=== PATIENT | female | born 1965 | race Caucasian/White ===

== ENCOUNTER 2018-01-25 18:25 | Emergency (ER) | payer BC ==
[~2018-01-25] VITALS: Ht 157.5 cm; Wt 89.3 kg
[~2018-01-25 18:25] MED LIST: FLUO20CA43 PO
[2018-01-25] MEDS ORDERED: methylPREDNISolone sod succ 125mg/2ml vial IV ONE (19:20)
[2018-01-25] MEDS ORDERED: iohexol 300mg/ml 100ml inj. ONE (19:28)
[2018-01-25 21:45] VITALS: BP 140/80
[2018-01-25] MEDS ORDERED: fentaNYL/PF 50MCG/1 ML 2ML syringe ONE (21:49)
[2018-01-25] MEDS ORDERED: MIDAZolam 5mg/5ml vial ONE ×2 (21:49→21:59)
[2018-01-25] MEDS ORDERED: LIDOcaine Viscous 15ml cup ONE (21:49)
[2018-01-25] MEDS ORDERED: diphenhydrAMINE 50 mg/ml inj ONE (22:01)
[2018-01-25 22:23] VITALS: BP 154/94
[2018-01-25 22:33] VITALS: BP 147/81
[2018-01-25 22:43] VITALS: BP 148/82
[2018-01-25 22:53] VITALS: BP 126/73
[2018-01-25 23:34] VITALS: BP 144/89
== END 2018-01-25 23:35 | disposition home or self-care (01) ==
LOC: ER 18:26
DX: T17.228A Food in pharynx causing other injury, initial encounter (principal); Z98.890 Other specified postprocedural states; Z79.899 Other long term (current) drug therapy; W45.8XXA Other foreign body or object entering through skin, initial encounter; Y93.89 Activity, other specified; Y92.89 Other specified places as the place of occurrence of the external cause; Y99.8 Other external cause status
CPT/HCPCS: 43213; 43247; 70491; 96374; 99285; J1200; J2250; J2930; J3010; J7030; Q9967; 99284; A4620; G0500

== ENCOUNTER 2020-03-04 11:16 | Inpatient (IN) | payer BC, OTHER ==
[2020-03-04] VITALS (10 sets, daily range): BP systolic 92–144; BP diastolic 42–116
[~2020-03-04] VITALS: Ht 157.5 cm; Wt 95.5 kg
--- NOTE | 2020-03-04 11:25 | NUR ---
been seeing dr tuttle about chest pressure
--- NOTE | 2020-03-04 11:26 | NUR ---
EKG 1118
[2020-03-04] MEDS ORDERED: aspirin 325mg tablet PO ONE (12:05)
[2020-03-04 12:09] LABS: BASOPHILS % (AUTO) 0.7 % (0-1); EOSINOPHILS # (AUTO) 0.1 X10'3 (0-0.9); EOSINOPHILS % (AUTO) 2.5 % (0-6); HEMATOCRIT 34.5 % (35.0-45.0); HEMOGLOBIN 11.8 g/dl (12.0-16.0); LYMPHOCYTES # (AUTO) 1.9 X10'3 (1.1-4.8); LYMPHOCYTES % (AUTO) 36.8 % (21-51); MEAN CORPUSCULAR HEMOGLOBIN 30.2 PG (27.0-31.0); MEAN CORPUSCULAR HGB CONC 34.1 g/dL (33.0-36.5); MEAN CORPUSCULAR VOLUME 88.7 FL (78-98); MEAN PLATELET VOLUME 7.7 FL (7.4-10.4); MONOCYTES # (AUTO) 0.3 X10'3 (0-0.9); MONOCYTES % (AUTO) 6.2 % (2-12); NEUTROPHILS # (AUTO) 2.8 X10'3 (1.8-7.7); NEUTROPHILS % (AUTO) 53.8 % (42-75); PLATELET COUNT 289 X10'3 (140-440); RED BLOOD COUNT 3.89 X10'6 (4.20-5.60); RED CELL DISTRIBUTION WIDTH 13.1 % (11.5-14.5); WHITE BLOOD COUNT 5.2 X10'3 (4.5-11.0)
[2020-03-04 12:20] LABS: ALANINE AMINOTRANSFERASE 38 U/L (12-78); ALBUMIN 3.8 G/DL (3.4-5.0); ALBUMIN/GLOBULIN RATIO 1.2 (1.1-1.5); ALKALINE PHOSPHATASE 65 IU/L (46-116); ANION GAP 10 (8-16); ASPARTATE AMINO TRANSFERASE 16 U/L (10-37); BILIRUBIN,TOTAL 0.3 MG/DL (0.1-1.0); BLOOD UREA NITROGEN 18 MG/DL (7-18); BUN/CREATININE RATIO 20.7 (6.6-38.0); CALCIUM 8.4 MG/DL (8.5-10.1); CHLORIDE 107 MMOL/L (99-107); CREATININE 0.87 MG/DL (0.40-0.90); GLUCOSE 92 MG/DL (70-104); POTASSIUM 3.7 MMOL/L (3.5-5.1); SODIUM 141 MMOL/L (135-145); TOTAL CARBON DIOXIDE 24.3 MMOL/L (24-32); TOTAL PROTEIN 6.9 G/DL (6.4-8.2); eGFR 68 ML/MIN
[2020-03-04] MEDS ORDERED: nitroGLYCERIN 0.4mg/hour patch TD ONE (13:15)
[2020-03-04 13:38] LABS: PARTIAL THROMBOPLASTIN TIME 29 SECONDS (22-32)
[2020-03-04] MEDS ORDERED: magnesium 4gm in 100ml NS 100 ML IV PRN (13:40)
[2020-03-04] MEDS ORDERED: morphine 2 MG/ML inj. syringe IV PRN (13:40)
[2020-03-04] MEDS ORDERED: HYDROcodone/acetaminophen 5mg/325mg tablet PO PRN ×2 (13:40→23:00)
[2020-03-04] MEDS ORDERED: acetaminophen 325mg tablet PO PRN (13:40)
[2020-03-04] MEDS ORDERED: magnesium hydroxide 30ml (MOM) UD suspension PO PRN (13:40)
[2020-03-04] MEDS ORDERED: mag hydrox/Alum hydrox/simeth 30ml oral suspension PO PRN (13:40)
[2020-03-04] MEDS ORDERED: potassium CL 10mEq/100ml bag 100 ML IV PRN ×2 (13:40)
[2020-03-04] MEDS ORDERED: magnesium Cl slow-release 64mg tablet PO PRN (13:40)
[2020-03-04] MEDS ORDERED: magnesium 2GM in 50ml NS 50 ML IV PRN (13:40)
[2020-03-04] MEDS ORDERED: ondansetron/PF 4mg/2ml inj IV PRN ×2 (13:40→23:00)
[2020-03-04] MEDS ORDERED: potassium Cl 20 mEq SR tablet PO PRN ×2 (13:40)
[2020-03-04] MEDS: normal saline 1000ml 1,000 ML IV SCH ×2 (13:51→23:36)
[2020-03-04] MEDS ORDERED: LORA-269 PO (14:07)
[2020-03-04 14:35] LABS: HEMOGLOBIN A1C 5.9 % (4.5-6.2)
--- NOTE | 2020-03-04 14:45 | NUR ---
REPORT RECEIVED FROM MYLES NORMAN IN THE ED
[2020-03-04] MEDS ORDERED: midazolam 2 mg/2 ml injection ONE (16:05)
[2020-03-04] MEDS ORDERED: nitroGLYCERIN-Tridil 50MG/D5W 250 ML IV ONE (16:05)
[2020-03-04] MEDS ORDERED: LIDOcaine 1% (10mg/ml)w/preservative injection 20ml MDV ONE (16:05)
[2020-03-04] MEDS ORDERED: heparin 1,000unit/ml 10ml vial 10 ML ONE (16:05)
[2020-03-04] MEDS ORDERED: verapamil 2.5 mg/ml inj IV ONE (16:05)
[2020-03-04] MEDS ORDERED: fentaNYL/PF 50MCG/1 ML 2ML syringe ONE (16:06)
[2020-03-04] MEDS ORDERED: iohexol 350MG/ML 100ml bottle IV ONE (16:06)
[2020-03-04] MEDS ORDERED: LIDOcaine/PRILOcaine 5gm cream TP ONE (16:20)
--- NOTE | 2020-03-04 16:30 | NUR ---
Patient down at laboratory operations coordinator, transported by tech via wheelchair.
--- NOTE | 2020-03-04 17:29 | NUR ---
Electronics Design Engineer called to give report. Patient is reported stable and doing well. No stents were placed. Right wrist has 16ml in vast band
--- NOTE | 2020-03-04 18:14 | NUR ---
Problems reprioritized. Patient report given, questions answered & plan of care reviewed with Nikki NORMAN.
[2020-03-04] MEDS ORDERED: heparin, porcine 5000 units/ml vial SQ SCH (20:00)
[2020-03-04] MEDS: K and/or MAG REPLACEMENT MC SCH (20:00)
[2020-03-04] MEDS ORDERED: temazepam 15mg capsule PO PRN (21:00)
[2020-03-04] MEDS ORDERED: proCHLORperazine 10 MG/2 ml inj IV PRN (23:00)
[2020-03-04] MEDS: HYDROcodone/acetaminophen 10/325mg tab PO PRN (23:47)
[2020-03-05 03:00] VITALS: BP 111/55
[2020-03-05 05:20] LABS: BASOPHILS % (AUTO) 0.5 % (0-1); EOSINOPHILS # (AUTO) 0.1 X10'3 (0-0.9); EOSINOPHILS % (AUTO) 2.6 % (0-6); HEMATOCRIT 30.6 % (35.0-45.0); HEMOGLOBIN 10.3 g/dl (12.0-16.0); LYMPHOCYTES # (AUTO) 1.5 X10'3 (1.1-4.8); LYMPHOCYTES % (AUTO) 31.7 % (21-51); MEAN CORPUSCULAR HEMOGLOBIN 30.3 PG (27.0-31.0); MEAN CORPUSCULAR HGB CONC 33.8 g/dL (33.0-36.5); MEAN CORPUSCULAR VOLUME 89.7 FL (78-98); MEAN PLATELET VOLUME 7.7 FL (7.4-10.4); MONOCYTES # (AUTO) 0.4 X10'3 (0-0.9); MONOCYTES % (AUTO) 7.8 % (2-12); NEUTROPHILS # (AUTO) 2.6 X10'3 (1.8-7.7); NEUTROPHILS % (AUTO) 57.4 % (42-75); PLATELET COUNT 230 X10'3 (140-440); RED BLOOD COUNT 3.41 X10'6 (4.20-5.60); RED CELL DISTRIBUTION WIDTH 13.1 % (11.5-14.5); WHITE BLOOD COUNT 4.6 X10'3 (4.5-11.0)
[2020-03-05] MEDS: HYDROcodone/acetaminophen 10/325mg tab PO PRN (05:38)
[2020-03-05 05:51] LABS: ALANINE AMINOTRANSFERASE 35 U/L (12-78); ALBUMIN 3.2 G/DL (3.4-5.0); ALBUMIN/GLOBULIN RATIO 1.1 (1.1-1.5); ALKALINE PHOSPHATASE 54 IU/L (46-116); ANION GAP 7 (8-16); ASPARTATE AMINO TRANSFERASE 17 U/L (10-37); BILIRUBIN,TOTAL 0.2 MG/DL (0.1-1.0); BLOOD UREA NITROGEN 15 MG/DL (7-18); CALCIUM 7.8 MG/DL (8.5-10.1); CHLORIDE 107 MMOL/L (99-107); CHOL/HDL RATIO 4.6 (0.00-4.99); CHOLESTEROL 123 MG/DL (0-200); CREATININE 0.79 MG/DL (0.40-0.90); GLUCOSE 105 MG/DL (70-104); HDL CHOLESTEROL 27 MG/DL (35-60); LDL CHOLESTEROL 80 MG/DL (50-100); MAGNESIUM 1.6 MG/DL (1.5-2.4); POTASSIUM 3.4 MMOL/L (3.5-5.1); SODIUM 140 MMOL/L (135-145); TOTAL CARBON DIOXIDE 25.9 MMOL/L (24-32); TRIGLYCERIDES 118 MG/DL (20-135); eGFR 76 ML/MIN
--- NOTE | 2020-03-05 06:00 | NUR ---
Patient in room PCU 3025. I have received report from Nikki NORMAN and had the opportunity to ask questions and assume patient care.
[2020-03-05 07:00] VITALS: BP 100/54
[2020-03-05] MEDS ORDERED: pantoprazole 40mg Tablet.DR PO SCH (07:30)
[2020-03-05] MEDS ORDERED: ACETYLCYSTEINE 200 MG/1 ML 4 ML ORAL SOLUTION PO SCH (08:00)
[2020-03-05] MEDS: K and/or MAG REPLACEMENT MC SCH (08:00)
[2020-03-05] MEDS: normal saline 1000ml 1,000 ML IV SCH (09:36)
[2020-03-05 11:00] VITALS: BP 116/63
[2020-03-05] MEDS ORDERED: ibuprofen 200mg tablet PO ONE (11:50)
[2020-03-05] MEDS ORDERED: PANT40TA4 PO (13:21)
[2020-03-05] MEDS ORDERED: FLUoxetine 20mg capsule PO SCH (13:30)
--- NOTE | 2020-03-05 14:05 | NUR ---
Patient was discharged to home @1405. She was picked up by her daughter. PIV was removed with cannula intact. RX was escripted to [facility] in [place]. Discharge instructions were reviewed with patient and she verbalized understanding. She was alert, oriented and appropriate at time of d/c.
== END 2020-03-05 14:05 | disposition home or self-care (01) | DRG 287 ==
LOC: ER 11:17 → ED HOLD 13:36 → PCU 3S 14:57
PROVIDERS: ADMIT Internal Medicine; ATTEND Family Medicine
PROC: 4A023N7 Measurement of Cardiac Sampling and Pressure, Left Heart, Percutaneous Approach (ICD-10-PCS; principal; 2020-03-04)
PROC: B2111ZZ Fluoroscopy of Multiple Coronary Arteries using Low Osmolar Contrast (ICD-10-PCS; 2020-03-04)
DX: R07.89 Other chest pain (principal); K21.9 Gastro-esophageal reflux disease without esophagitis; D64.9 Anemia, unspecified; F32.9 Major depressive disorder, single episode, unspecified; F41.9 Anxiety disorder, unspecified
CPT/HCPCS: 36415; 71045; 80053; 80061; 83036; 83735; 83880; 84484; 85025; 85379; 85610; 85730; 87081; 93005; 93458; 97110; 97116; 97161; 97530; 99152; 99153; A4620; A5120; C1769; C1894; G0378; J1644; J2001; J2250; J2405; J3010; J3490; J7030; Q9967

== ENCOUNTER 2021-08-01 13:21 | Emergency (ER) | payer BC ==
[~2021-08-01] VITALS: Ht 157.5 cm; Wt 90.9 kg
[~2021-08-01 13:21] MED LIST changes: +LORA-269 PO; +PANT40TA54 PO
[2021-08-01 15:11] LABS: BASOPHILS % (AUTO) 0.4 % (0-1); EOSINOPHILS % (AUTO) 0.1 % (0-6); HEMATOCRIT 39.3 % (35.0-45.0); HEMOGLOBIN 13.2 g/dl (12.0-16.0); LYMPHOCYTES % (AUTO) 28.9 % (21-51); MEAN CORPUSCULAR HGB CONC 33.7 g/dL (33.0-36.5); MEAN PLATELET VOLUME 7.7 FL (7.4-10.4); MONOCYTES # (AUTO) 0.3 X10'3 (0-0.9); MONOCYTES % (AUTO) 8.6 % (2-12); NEUTROPHILS # (AUTO) 2.2 X10'3 (1.8-7.7); PLATELET COUNT 247 X10'3 (140-440); RED BLOOD COUNT 4.57 X10'6 (4.20-5.60); RED CELL DISTRIBUTION WIDTH 12.9 % (11.5-14.5); WHITE BLOOD COUNT 3.5 X10'3 (4.5-11.0)
[2021-08-01 15:21] LABS: D-DIMER 0.36 MG/L FEU (0-0.50)
[2021-08-01 15:27] LABS: ALANINE AMINOTRANSFERASE 99 U/L (12-78); ALBUMIN 3.8 G/DL (3.4-5.0); ALKALINE PHOSPHATASE 93 IU/L (46-116); ANION GAP 11 (8-16); ASPARTATE AMINO TRANSFERASE 51 U/L (10-37); BILIRUBIN,TOTAL 0.3 MG/DL (0.1-1.0); BLOOD UREA NITROGEN 15 MG/DL (7-18); BUN/CREATININE RATIO 18.1 (6.6-38.0); CALCIUM 8.4 MG/DL (8.5-10.1); CHLORIDE 101 MMOL/L (99-107); CREATININE 0.83 MG/DL (0.40-0.90); GLUCOSE 108 MG/DL (70-104); POTASSIUM 3.5 MMOL/L (3.5-5.1); SODIUM 139 MMOL/L (135-145); TOTAL CARBON DIOXIDE 27.1 MMOL/L (24-32); TOTAL PROTEIN 7.7 G/DL (6.4-8.2); eGFR 71 ML/MIN
[2021-08-01] MEDS ORDERED: ketorolac tromethamine 15mg/ml inj. IV ONE (15:55)
--- NOTE | 2021-08-01 16:02 | NUR ---
CALLED PHARMACY TO MAKE SURE MEDICATION IS BEING PREPARED. THEY WILL CALL WHEN READY.
[2021-08-01] MEDS ORDERED: ketorolac trometh. 30mg/ml inj. IV ONE (16:05)
[2021-08-01] MEDS ORDERED: BAMLANIVIMAB&ETESEVIMAB 2100mg 2,100 MG in normal saline 100ml IV soln 100 ML IV ONE ×2 (16:05→16:30)
[2021-08-01 16:39] VITALS: BP 121/74
== END 2021-08-01 18:47 | disposition home or self-care (01) ==
LOC: ER 13:21
DX: U07.1 COVID-19 (principal); J12.82 Pneumonia due to coronavirus disease 2019; I25.10 Atherosclerotic heart disease of native coronary artery without angina pectoris; Z72.89 Other problems related to lifestyle; Z79.899 Other long term (current) drug therapy
CPT/HCPCS: 36415; 71045; 80053; 84145; 85025; 85379; 86140; 87635; 96374; 99284; C9803; J1885; J3490; M0245; Q0245; M0239